=== PATIENT | male | born 1980 | race Caucasian/White ===

== ENCOUNTER 2016-11-23 08:17 | Observation (INO) ==
[2016-11-23] MEDS ORDERED: Aspirin Enteric Coated 81 MG Tablet PO ONE (09:31)
--- NOTE | 2016-11-23 09:34 | Emergency Department Note ---
Disposition Clinical Impression: Dizzy, Neck and shoulder pain Disposition: Admitted As Inpatient Condition: Good Referrals: Ami Funes CNP [Primary Care Provider] - Forms: ED Satisfaction Letter Dizziness HPI - General Chief Complaint: ED Dizziness Stated Complaint: dizziness Time Seen by Provider: 11/23/16 08:29 Source: patient Mode of arrival: private vehicle Limitations: no limitations Nursing Notes Reviewed: Yes Vital Signs Reviewed: Yes - History of Present Illness Pt Subjective Complaint: dizziness, other (left sided neck and shoulder pain) Onset (ago): hour(s) Timing: gradual onset, intermittent, waxing/waning, now resolved Description: lightheadedness, near-syncope History of similar episodes: Yes (heart cath 4 yrs ago - 30% blockage of LAD) History of trauma: No Severity: moderate, now resolved Improves with: nothing Worsens with: exertion (walking, working) Associated symptoms: Reports: nausea. Denies: ataxia, chest pain, confusion, diaphoresis, fever, chills, malaise, rash, shortness of breath, syncope, weakness, vision changes, vomiting, palpitations - Related Data Home Medications Medication Instructions Recorded Confirmed Aspirin [Lo-Dose Aspirin EC] 81 mg PO DAILY 11/23/16 11/23/16 Ibuprofen [Motrin] 200 - 800 mg PO Q6HR PRN 11/23/16 11/23/16 Testosterone Cypionate 200 mg IM QWEEK 11/23/16 11/23/16 [Depo-Testosterone] Allergies Allergy/AdvReac Type Severity Reaction Status Date / Time bee venom protein (honey bee) Allergy Anaphylaxis Verified 11/23/16 08:27 All systems ED: reviewed and negative except as stated. Constitutional: Denies: fever, chills, weakness, night sweats Eyes: Denies: vision change ENT ED: Denies: ear pain, throat pain, congestion, dysphagia Cardiovascular: Denies: chest pain, palpitations, dyspnea on exertion, orthopnea , edema, syncope Respiratory: Denies: cough, dyspnea, wheezes Gastrointestinal: Reports: nausea. Denies: abdominal pain, vomiting, diarrhea Musculoskeletal: Reports: as per HPI, neck pain, arthralgia. Denies: back pain , joint swelling Neurological: Denies: headache, weakness, numbness, paresthesias, confusion, abnormal gait, vertigo Psychiatric: Reports: anxiety ("had a little panic attack when walked into gas station and dizziness got worse") Hematological/Lymphatic: Denies: easy bleeding, easy bruising Past Medical History - Past Medical History Attestation: Yes The following information was validated with the patient. Source: patient Medical history: Reports: coronary artery disease (30% blockage in LAD on Cath 4 years ago.), hypertension, other Psychiatric history: Reports: no psych history - Social History Smoking Status: Never smoker Smokeless Tobacco Status: No Alcohol use: Reports: occasionally Drug use: Reports: none Physical Exam - General Limitations: no limitations General appearance: alert, in no apparent distress - Head Head exam: atraumatic, normocephalic, normal inspection - Eye Eye exam: Present: normal appearance, PERRL, EOMI - ENT ENT exam: normal exam, normal oropharynx, mucous membranes moist - Neck Neck exam: Present: normal inspection, full ROM, trachea midline. Absent: tenderness, meningismus, lymphadenopathy, thyromegaly - Expanded Neck Exam Neck exam focused ED: Absent: midline tenderness, paraspinal tenderness, tenderness (other), anterior neck swelling, JVD, carotid bruit - Chest Chest inspection: Present: normal inspection, symmetric chest wall rise - Respiratory Respiratory exam: Present: normal lung sounds bilaterally. Absent: respiratory distress, wheezes - Cardiovascular Cardiovascular exam: Present: regular rate, normal rhythm, normal heart sounds - Abdominal Exam Abdominal exam: Present: soft, Non-Tender. Absent: distention, mass - Extremities Exam Extremities exam: Present: normal inspection. Absent: pedal edema - Back Exam Back exam: Present: normal inspection, full ROM - Neurological Exam Neurological exam: Present: alert, oriented X3, CN II-XII intact, normal gait. Absent: motor sensory deficit - Psychiatric Psychiatric exam: Present: normal affect, normal mood - Skin Skin exam: Present: warm, dry, intact, normal color Course Course Narrative: Patient with history of coronary artery disease as documented from a left heart catheterization four years ago that showed 30% occlusion of the LAD presents with left-sided neck and shoulder pain as well as episodes of dizziness. He states that he got up for work and was feeling fine. Then while driving he began to feel dizzy, lightheaded and nauseated. He stopped at a gas station to buy some snacks and after walking and he felt worse. He states, "it felt like I was having a panic attack or was about to pass out." He describes increased stiffness in his neck and shoulder, generalized weakness, nausea and dizziness. He drove to work after resting a moment. While working he felt shakey and continued to have pain. His symptoms progressed despite sitting / resting, so he called his to bring him here. He has a family hx of ACS at a young age. His paternal grandfather of a heart attack at age 36, and his father had his first DC in his 30's. He states that his Fitness Sales Associate, Dr. Lange told him that his heart condition (CAD) is hereditary. Patient is obese, non-smoker, no alcohol, no diabetes. Will check labs, ecg and CXR. He will most likely need to be admitted for a rule out +/- repeat cath. Vital Signs Temperature 98 F 11/23/16 08:22 Pulse Rate 64 11/23/16 08:22 Respiratory Rate 16 11/23/16 08:22 Blood Pressure 131/84 11/23/16 08:22 O2 Sat by Pulse Oximetry 97 11/23/16 08:22 Temperature 98 F 11/23/16 08:22 Pulse Rate 63 11/23/16 10:30 Respiratory Rate 23 11/23/16 10:30 Blood Pressure 126/83 11/23/16 10:30 O2 Sat by Pulse Oximetry 96 11/23/16 10:30 Oxygen Delivery Oxygen Delivery Nasal Cannula Dizziness - Medical Records Medical records reviewed: Yes I reviewed the patient's medical records. - Lab Data Lab results reviewed: Yes I reviewed the patient's lab results. Result diagrams: 11/23/16 09:42 11/23/16 09:42 Lab Results 11/23/16 11/23/16 11/23/16 Range/Units 09:42 09:42 09:42 WBC 9.3 (4.3-11.1) K/mcL RBC 5.85 H (4.19-5.50) M/mcL Hgb 17.6 H (12.9-16.9) g/dL Hct 51.8 H (37.5-50.1) % MCV 88.5 (83.0-100.0) fL MCH 30.1 (28.0-33.3) pg MCHC 34.0 (31.6-35.5) g/dL RDW 13.2 (11.5-14.5) % Plt Count 244 (140-400) K/mcL MPV 10.8 (9.4-12.4) fL Immature Gran % 0.3 (0-4) % Seg Neutrophils % 60.9 % Lymphocytes % 20.6 % Monocytes % 5.2 % Eosinophils % 12.5 % Basophils % 0.5 % Neutrophils # 5.7 (1.6-8.9) K/mcL Lymphocytes # 1.9 (0.6-4.6) K/mcL Monocytes # 0.5 (0.0-1.3) K/mcL Eosinophils # 1.2 H (0.0-0.6) K/mcL Basophils # 0.1 (0.0-0.2) K/mcL Immature Plt Fraction 4.4 (1.1-6.1) % PT 12.4 H (9.4-12.1) Seconds INR 1.1 APTT 29.7 (26.0-36.0) Seconds Sodium 138 (136-145) mEq/L Potassium 4.2 (3.5-4.5) mEq/L Chloride 104 (98-109) mEq/L Carbon Dioxide 30 H (19-29) mEq/L BUN 10 (8-26) mg/dL Creatinine 1.05 (0.72-1.25) mg/dL Est GFR ( Amer) > 60 (> 60) Est GFR (Non-Af Amer) > 60 (> 60) BUN/Creatinine Ratio 10 (6-26) Glucose 88 (70-99) mg/dL Calculated Osmolality 284 (280-300) Calcium 8.9 (8.6-10.8) mg/dL Troponin I (0-0.03) ng/mL 11/23/16 Range/Units 09:42 WBC (4.3-11.1) K/mcL RBC (4.19-5.50) M/mcL Hgb (12.9-16.9) g/dL Hct (37.5-50.1) % MCV (83.0-100.0) fL MCH (28.0-33.3) pg MCHC (31.6-35.5) g/dL RDW (11.5-14.5) % Plt Count (140-400) K/mcL MPV (9.4-12.4) fL Immature Gran % (0-4) % Seg Neutrophils % % Lymphocytes % % Monocytes % % Eosinophils % % Basophils % % Neutrophils # (1.6-8.9) K/mcL Lymphocytes # (0.6-4.6) K/mcL Monocytes # (0.0-1.3) K/mcL Eosinophils # (0.0-0.6) K/mcL Basophils # (0.0-0.2) K/mcL Immature Plt Fraction (1.1-6.1) % PT (9.4-12.1) Seconds INR APTT (26.0-36.0) Seconds Sodium (136-145) mEq/L Potassium (3.5-4.5) mEq/L Chloride (98-109) mEq/L Carbon Dioxide (19-29) mEq/L BUN (8-26) mg/dL Creatinine (0.72-1.25) mg/dL Est GFR ( Amer) (> 60) Est GFR (Non-Af Amer) (> 60) BUN/Creatinine Ratio (6-26) Glucose (70-99) mg/dL Calculated Osmolality (280-300) Calcium (8.6-10.8) mg/dL Troponin I 0.00 (0-0.03) ng/mL - Radiology Data Radiology results reviewed: Yes I reviewed the patient's radiology results.
[2016-11-23] MEDS: 0.9 % Sodium Chloride 1,000 ML IVC SCH ×2 (09:44→22:36)
--- NOTE | 2016-11-23 09:51 | Emergency Department Note ---
START Narrative - START START: I examined this patient and my medical decision-making was reviewed with the COMMUNITY DEVELOPMENT PLANNER/PA/Advanced Practice Nurse/Resident Physician. I agree with the documented findings, disposition and treatment plan as described except to the extent set forth below.
[2016-11-23 10:05] LABS: Basophils # 0.1 K/mcL (0.0-0.2); Basophils % 0.5 %; Eosinophils # 1.2 K/mcL (0.0-0.6); Eosinophils % 12.5 %; Hematocrit 51.8 % (37.5-50.1); Hemoglobin 17.6 g/dL (12.9-16.9); Immature Granulocytes % 0.3 % (0-4); Immature Platelets 4.4 % (1.1-6.1); Lymphocytes # 1.9 K/mcL (0.6-4.6); Lymphocytes % 20.6 %; Mean Corpuscular Hemoglobin 30.1 pg (28.0-33.3); Mean Corpuscular Volume 88.5 fL (83.0-100.0); Mean Platelet Volume 10.8 fL (9.4-12.4); Monocytes # 0.5 K/mcL (0.0-1.3); Monocytes % 5.2 %; Neutrophils # 5.7 K/mcL (1.6-8.9); Platelet Count 244 K/mcL (140-400); Red Blood Count 5.85 M/mcL (4.19-5.50); Red Cell Distribution Width 13.2 % (11.5-14.5); Segmented Neutrophils % 60.9 %
[2016-11-23 10:09] LABS: INR 1.1; Prothrombin Time 12.4 Seconds (9.4-12.1)
[2016-11-23 10:12] LABS: Activated Partial Thrombo Time 29.7 Seconds (26.0-36.0)
[2016-11-23 10:17] LABS: BUN/Creatinine Ratio 10 (6-26); Blood Urea Nitrogen 10 mg/dL (8-26); Calcium 8.9 mg/dL (8.6-10.8); Carbon Dioxide 30 mEq/L (19-29); Chloride 104 mEq/L (98-109); Glucose 88 mg/dL (70-99); Osmolality,Calculated 284 (280-300); Potassium 4.2 mEq/L (3.5-4.5); Sodium 138 mEq/L (136-145); eGFR For African Americans > 60 (> 60); eGFR For Non-African Americans > 60 (> 60)
[2016-11-23] MEDS ORDERED: Naloxone 0.4 MG/ML INJ IVP PRN (12:19)
[2016-11-23] MEDS ORDERED: Ondansetron 4 MG/2 ML VIAL IVP PRN (12:19)
[2016-11-23] MEDS ORDERED: Acetaminophen 325 MG TABLET PO PRN (12:19)
--- NOTE | 2016-11-23 12:22 | Internal Med History&Physical ---
Date of Encounter: 11/23/16 Time of Encounter: 11:50 Assessment and Plan (1) Chest pain Current visit: Yes Status: Acute Atypical chest pain, to rule out ACS given strong family history and previous left heart catheter reports. Continue telemetry monitoring and cycle troponins. Continue aspirin and when necessary IV morphine, supportive care. Check 2-D echocardiogram. Qualifiers: Chest pain type: precordial pain Qualified Code(s): R07.2 - Precordial pain (2) Coronary artery disease Current visit: Yes Status: Chronic Qualifiers: Coronary Disease-Associated Artery/Lesion type: [place] artery [place] vs. transplanted heart: [place] heart Associated angina: without angina Qualified Code(s): I25.10 - Atherosclerotic heart disease of [place] coronary artery without angina pectoris Internal Medicine - H&P: HPI Chief complaint: Left neck, left chest pain Admitted From: Emergency Dept Plans for Post Hospital Care: Home History of present illness: Mr. Basurto is a 36 year old male with history of coronary artery disease and 30% LAD stenosis according to him, presents with complaints of sudden new onset of left-sided neck and shoulder pain, radiating to her left chest that started this morning. Patient reports feeling well until this morning when he was driving to work and developed a sudden onset of shooting pain in his left neck and shoulder, that radiated to his left chest, more like discomfort, associated with dizziness, some shortness of breath, nausea and not feeling well. No aggravating factors, partially relieved with aspirin. He drove himself to work but continued to have recurrent symptoms and he was brought to the emergency room by his . He reports having similar symptoms about 3-4 years ago when he underwent left heart catheterization due to strong family history of CAD and he was noted to have about 30% occlusion of LAD, no intervention was indicated. Past Med Surg Social Fam HX - Past Medical History Medical history: coronary artery disease (30% blockage in LAD on Cath 4 years ago.), other Psychiatric history: no psych history - Past Surgical History Surgical History: orthopedic, other (Left knee patellar surgery), vasectomy - Social History Smoking Status: Never smoker Smokeless Tobacco Status: No Alcohol use: occasionally Drug use: none Occupational status: employed Current living situation: Home, With Family Activity Level: Independent ambulation Recent Out of Country Travel Within the Last 8 Weeks: No - Family History Father Grandfather Living Status: Age at : 36 Hx Family Cardiac Disorders: Yes ([place] caused ) Internal Medicine - H&P: Meds Aspirin [Lo-Dose Aspirin EC] 81 mg PO DAILY 11/23/16 [History] Ibuprofen [Motrin] 200 - 800 mg PO Q6HR PRN 11/23/16 [History] Testosterone Cypionate [Depo-Testosterone] 200 mg IM QWEEK 11/23/16 [History] Allergies bee venom protein (honey bee) Allergy (Verified 11/23/16 08:27) Anaphylaxis All Systems PM: A 10-system review of systems was performed and is negative for pertinent findings except as documented above in the HPI. - Constitutional Constitutional: no chills, no fever(s), no night sweats - EENT Eyes: no change in vision, no discharge, no pain, no photophobia Ears: no ear discharge, no ear pain, no tinnitus Nose, mouth and throat: no dysphagia, no nasal discharge, no neck pain, no sore throat - Cardiovascular Cardiovascular ROS IM: chest pain, dyspnea, lightheadedness - Respiratory Respiratory: no cough, no dyspnea, no wheezing, no excessive phlegm production - Gastrointestinal Gastrointestinal: nausea - Musculoskeletal Musculoskeletal ROS IM: no numbness, no tingling - Integumentary Integumentary IM: no rash, no unusual bruising - Neurological Neurological ROS: no confusion, no convulsions, no focal weakness, no numbness, no tingling, no tremor(s) - Hematologic/Lymphatic Hematologic/Lymphatic: no easy bruising - Constitutional Vitals: Temp Pulse Resp BP Pulse Ox 98 F 52 13 122/78 99 11/23/16 08:22 11/23/16 11:08 11/23/16 11:08 11/23/16 11:08 11/23/16 11:08 General appearance: Present: A&O X 3, morbidly obese, answers questions appropriately - Respiratory Respiratory exam: Present: CTAB. Absent: accessory muscle use, rales, rhonchi, wheezes - Cardiovascular Cardiovascular exam: Present: RRR, +S1, +S2. Absent: diastolic murmur, gallop, rubs, systolic murmur - GI/Abdominal GI/Abdominal exam: Present: normal bowel sounds, soft, no peritoneal signs. Absent: distended, tenderness - Extremities Exam Extremities exam: Present: full ROM, warm, radial pulses palpable and symetrical. Absent: calf tenderness, cyanotic, pedal edema - Neurological Exam Neurological exam: Present: CN II-XII intact, oriented X3, no focal deficits. Absent: pronater drift, facial droop, speech deficit - Skin Skin exam: Present: dry, intact Internal Med - H&P Results - Labs CBC & Chem 7: 11/23/16 09:42 11/23/16 09:42 Labs: Short CBC 11/23/16 Range/Units 09:42 WBC 9.3 (4.3-11.1) K/mcL Hgb 17.6 H (12.9-16.9) g/dL Hct 51.8 H (37.5-50.1) % Plt Count 244 (140-400) K/mcL Neutrophils # 5.7 (1.6-8.9) K/mcL BMP 11/23/16 09:42 Sodium 138 Potassium 4.2 Chloride 104 Carbon Dioxide 30 H BUN 10 Creatinine 1.05 Glucose 88 Calcium 8.9 Cardiac Enzymes 11/23/16 Range/Units 09:42 Troponin I 0.00 (0-0.03) ng/mL - EKG Data -: EKG Interpreted by Myself EKG shows normal: sinus rhythm Rate: normal - Impressions ITS Impressions Chest X-Ray 11/23/16 09:29 IMPRESSION: No acute process. D/ / Renard Calderon MD / Renard Calderon MD Interpreting Provider: Renard Calderon MD
[2016-11-24 00:47] LABS: Basophils # 0.1 K/mcL (0.0-0.2); Basophils % 0.5 %; Eosinophils # 1.2 K/mcL (0.0-0.6); Eosinophils % 11.8 %; Hematocrit 50.7 % (37.5-50.1); Hemoglobin 16.9 g/dL (12.9-16.9); Immature Granulocytes % 0.4 % (0-4); Lymphocytes # 2.7 K/mcL (0.6-4.6); Lymphocytes % 26.8 %; Mean Corpuscular HGB Conc 33.3 g/dL (31.6-35.5); Mean Corpuscular Hemoglobin 29.8 pg (28.0-33.3); Mean Corpuscular Volume 89.4 fL (83.0-100.0); Mean Platelet Volume 10.7 fL (9.4-12.4); Monocytes # 0.6 K/mcL (0.0-1.3); Monocytes % 5.5 %; Neutrophils # 5.5 K/mcL (1.6-8.9); Platelet Count 248 K/mcL (140-400); Red Blood Count 5.67 M/mcL (4.19-5.50); Red Cell Distribution Width 13.1 % (11.5-14.5)
[2016-11-24 01:03] LABS: BUN/Creatinine Ratio 11 (6-26); Blood Urea Nitrogen 13 mg/dL (8-26); Calcium 8.7 mg/dL (8.6-10.8); Carbon Dioxide 26 mEq/L (19-29); Chloride 108 mEq/L (98-109); Chol/HDL Ratio 5.5 (0-4.9); Cholesterol 142 mg/dL (< 200); Glucose 102 mg/dL (70-99); HDL Cholesterol 26 mg/dL (40-59); LDL Cholesterol,Calculated 93 mg/dL (0-99); Osmolality,Calculated 290 (280-300); Sodium 140 mEq/L (136-145); Triglycerides 113 mg/dL (< 150); eGFR For African Americans > 60 (> 60); eGFR For Non-African Americans > 60 (> 60)
[2016-11-24 01:04] LABS: Potassium 4.4 mEq/L (3.5-4.5)
--- NOTE | 2016-11-24 06:33 | Electrocardiograph Report ---
[facility] Test Date: 2016-11-23 Pat Name: Vadim Basurto Department: 102 Room: 3B55 Gender: M Rack Puncher: Zheng : 1980 Requested By: January Lang Order Number: [id number] Reading MD: Mars Miner MD Measurements Intervals [place] Rate: 67 P: 26 WV: 162 QRS: 45 QRSD: 100 T: 15 QT: 384 QTc: 399 Interpretive Statements SINUS RHYTHM Electronically Signed On 11-24-2016 6:31:47 EDT by Mars Miner MD
[2016-11-24] MEDS ORDERED: Regadenoson 0.4 MG/5 ML SYRINGE IVP ONE (07:03)
[2016-11-24] MEDS: Aspirin Enteric Coated 81 MG Tablet PO SCH (07:08)
[2016-11-24] MEDS: 0.9 % Sodium Chloride 1,000 ML IVC SCH (17:23)
--- NOTE | 2016-11-24 17:28 | Internal Med Progress Note ---
Date of Encounter: 11/24/16 Time of Encounter: 15:00 - Assessment and plan (1) Chest pain Current Visit: Yes Status: Acute Assessment and plan: 36-year-old male with past medical history of CAD, patient had left heart catheterization showing 30% blockage in the LAD in 2012. He presented with a chief complaint of left-sided chest pain radiating to his neck and left arm. Troponins were negative. EKG showed no acute ischemic changes. Chest x-ray showed no acute process. Patient is chest pain-free. He is at risk for ACS given comorbidities including COPD and morbid obesity. No telemetry events. He underwent first part of his stress test this morning. He will have second part of his stress test tomorrow. Qualifiers: Chest pain type: precordial pain Qualified Code(s): R07.2 - Precordial pain (2) Coronary artery disease Current Visit: Yes Status: Chronic Assessment and plan: continue aspirin. Qualifiers: Coronary Disease-Associated Artery/Lesion type: [place] artery [place] vs. transplanted heart: [place] heart Associated angina: without angina Qualified Code(s): I25.10 - Atherosclerotic heart disease of [place] coronary artery without angina pectoris (3) Morbid obesity with BMI of 40.0-44.9, adult Current Visit: No Status: Chronic Assessment and plan: BMI 42. Outpatient weight loss program. - Subjective Interval history: no chest pain. no shortness of breath. - Constitutional Vitals: Temp Pulse Resp BP Pulse Ox 97.7 F 65 16 102/66 98 11/24/16 15:40 11/24/16 15:40 11/24/16 15:40 11/24/16 15:40 11/24/16 15:40 General appearance: Present: cooperative, A&O X 3, morbidly obese, no acute distress, answers questions appropriately - Neck Neck exam general surgery: Present: supple, trachea midline. Absent: lymphadenopathy - Respiratory Respiratory exam: Present: CTAB - Cardiovascular Cardiovascular exam: Present: RRR - GI/Abdominal GI/Abdominal exam: Present: normal bowel sounds, soft. Absent: distended, tenderness - Extremities Exam Extremities exam: Absent: pedal edema - Back Exam Back exam: Absent: CVA tenderness (L), CVA tenderness (R) - Neurological Exam Neurological exam: Present: alert, oriented X3, no focal deficits, strengths equal and symetr throughout. Absent: facial droop, speech deficit - Skin Skin exam: Absent: rash Internal Medicine: Result - Labs CBC & Chem 7: 11/24/16 00:31 11/24/16 00:31 Labs: Short CBC 11/24/16 Range/Units 00:31 WBC 10.0 (4.3-11.1) K/mcL Hgb 16.9 (12.9-16.9) g/dL Hct 50.7 H (37.5-50.1) % Plt Count 248 (140-400) K/mcL Neutrophils # 5.5 (1.6-8.9) K/mcL BMP 11/24/16 00:31 Sodium 140 Potassium 4.4 Chloride 108 Carbon Dioxide 26 BUN 13 Creatinine 1.14 Glucose 102 H Calcium 8.7 Cardiac Enzymes 11/23/16 11/24/16 Range/Units 18:55 00:31 Troponin I 0.00 0.00 (0-0.03) ng/mL - ABG Interpretation ABG results: PT/INR, D-dimer PT 12.4 Seconds (9.4-12.1) H 11/23/16 09:42 Consult Discharge Plan - Plan Referrals: Ami Funes SALES SPECIALIST [Primary Care Provider] - 12/04/16 1:00 pm
[2016-11-25 06:31] LABS: Basophils # 0.1 K/mcL (0.0-0.2); Basophils % 0.5 %; Eosinophils % 9.7 %; Hematocrit 50.7 % (37.5-50.1); Hemoglobin 16.7 g/dL (12.9-16.9); Immature Granulocytes % 0.3 % (0-4); Lymphocytes # 2.3 K/mcL (0.6-4.6); Lymphocytes % 22.8 %; Mean Corpuscular HGB Conc 32.9 g/dL (31.6-35.5); Mean Corpuscular Hemoglobin 29.3 pg (28.0-33.3); Mean Corpuscular Volume 89.1 fL (83.0-100.0); Mean Platelet Volume 11.2 fL (9.4-12.4); Monocytes # 0.6 K/mcL (0.0-1.3); Monocytes % 5.7 %; Platelet Count 250 K/mcL (140-400); Red Blood Count 5.69 M/mcL (4.19-5.50); Red Cell Distribution Width 13.1 % (11.5-14.5)
[2016-11-25 06:48] LABS: Alanine Aminotransferase 26 Units/L (0-55); Albumin 3.4 g/dL (3.5-5.0); Alkaline Phosphatase 47 Units/L (38-126); Aspartate Amino Transferase 19 Units/L (5-34); BUN/Creatinine Ratio 9 (6-26); Blood Urea Nitrogen 10 mg/dL (8-26); Calcium 8.7 mg/dL (8.6-10.8); Carbon Dioxide 29 mEq/L (19-29); Chloride 107 mEq/L (98-109); Globulin 3.3 g/dL (2.4-3.5); Glucose 85 mg/dL (70-99); Magnesium 1.7 mg/dL (1.6-2.6); Osmolality,Calculated 288 (280-300); Potassium 4.3 mEq/L (3.5-4.5); Sodium 140 mEq/L (136-145); Total Protein 6.7 g/dL (6.0-8.3); eGFR For African Americans > 60 (> 60); eGFR For Non-African Americans > 60 (> 60)
[2016-11-25] MEDS: Aspirin Enteric Coated 81 MG Tablet PO SCH (09:04)
--- NOTE | 2016-11-25 10:30 | Nuclear Medicine Stress Report ---
Regadenoson Nuclear 2 day Name: Vadim Basurto Date of Study: 11/24/2016 Date: 1980 Ht: 72.0 in Medical Record#: [id number] Age: 36 Wt: 308.0 lb Gender: Male Order #: [id number] Location: [facility] Room: [facility] Supervising Provider: Beth Quintana CNP Reading Physician: William Sood MD, [facility] Ordering Physician: Zina Acevedo CNP Primary Care Physician: tarik penaloza, Stress Technologist: Moreno Iverson, VP SALES, CCT User Interface Designer: Hammad Melendez Indications: Chest Pain, Dizzy Impression: Perfusion imaging was negative for ischemia or infarct. SDS - 0 Mild fixed perfusion defect in the inferoapical wall most consistent with artifact Patient had no chest pain with stress. Pharmacologic ECG was non diagnostic for ischemia. No arrhythmias noted with stress. Gated EF = 51%. The LV is not dilated. There is no evidence of TID. Stress Test Summary: Stress Test Type: Pharmacologic Regadenoson 0.4mg/5ml given IV Baseline Information: Initial Heart Rate: 71 Blood Pressure: 146/90 Stress Information: Stress Time: 4 min 00 sec Test Terminated Due to (primary): Completed Protocol Maximum Blood Pressure: 162/94 Maximum Heart Rate: 116 Percent Maximum Heart Rate Achieved: 63 Double Product: 18,792 METS Reached: 1 Symptoms: Shortness of breath, Warm,flushed Nuclear Summary: SPECT myocardial perfusion imaging using Tc99m Sestamibi given intravenously was performed at rest and following cardiac stress testing. The resting images were obtained following initial dose of 34.0 mCi. Following stress an additional dose of 31.4 mCi was given at peak exercise or 30 seconds post regadenoson infusion. Medication Given: Time Medication Dose Units Route Findings: Stress Note * Resting ECG demonstrated normal sinus rhythm. * No baseline arrhythmias were noted. * Pharmacologic stress ECG is non diagnostic for ischemia due to failure to reach target heartrate. * No chest pain or arrhythmias during stress. Hemodynamic responses * The patient demonstrated a hypotensive blood pressure response. Study Quality * Study quality is average. Gated EF % * Gated EF = 51%. Left Ventricle * The left ventricle is not dilated. NORMALS * Normal wall motion. * All other segmental perfusion normal in stress. * All other segmental perfusion normal in rest. TID * No evidence of transient ischemic dilatation. Apical Perfusion Rest * The apex segment shows a mild reduction in perfusion. Apical Perfusion Stress * The apex segment shows a mild reduction in perfusion. Inferior Perfusion Rest * The apical inferior segment shows a mild reduction in perfusion. Inferior Perfusion Stress * The apical inferior segment shows a mild reduction in perfusion. Updated by William Sood MD, FACC on 11/25/2016 10:20:16 AM electronically signed on 11/25/2016 10:25:24 AM with status of Final
[2016-11-25 10:44] VITALS: BP 109/61
--- NOTE | 2016-11-25 11:13 | Discharge Summary ---
Date of Encounter: 11/25/16 Time of Encounter: 11:10 - Discharge Diagnosis (1) Chest pain Priority: Primary Status: Acute Comments: 36-year-old male with past medical history of CAD, patient had left heart catheterization showing 30% blockage in the LAD in 2012. He presented with a chief complaint of left-sided chest pain radiating to his neck and left arm. Troponins were negative. EKG showed no acute ischemic changes. Chest x-ray showed no acute process. Stress test was negative for any acute process. Patient remained chest pain-free during this hospitalization. No telemetry events. Patient was ambulating and eating well at discharge. PLAN: Patient instructed to lose weight. Follow-up with primary care physician next week. Qualifiers: Chest pain type: precordial pain Qualified Code(s): R07.2 - Precordial pain (2) Coronary artery disease Priority: Secondary Status: Chronic Qualifiers: Coronary Disease-Associated Artery/Lesion type: [place] artery [place] vs. transplanted heart: [place] heart Associated angina: without angina Qualified Code(s): I25.10 - Atherosclerotic heart disease of [place] coronary artery without angina pectoris (3) Morbid obesity with BMI of 40.0-44.9, adult Priority: Secondary Status: Chronic - Discharge Medications Home Medications: Aspirin [Lo-Dose Aspirin EC] 81 mg PO DAILY 11/23/16 [History] Testosterone Cypionate [Depo-Testosterone] 200 mg IM QWEEK 11/23/16 [History] Allergies/Adverse Reactions: Allergies bee venom protein (honey bee) Allergy (Verified 11/23/16 08:27) Anaphylaxis Date of admission: 11/23/16 12:28 Primary care physician: KATHIE Jean-Baptiste - Patient Status Disposition: Home, Self-Care Condition: Good Functional capacity at discharge: independent ambulation Overall status at discharge: patient is back to baseline - Discharge Instructions Instructions: Chest Pain (DC) Follow Up With: Ami Funes CNP [Primary Care Provider] - 12/04/16 1:00 pm - Diet and Activity Activity: resume usual activities as tolerated Diet: low fat, low cholesterol Interval History: Patient has no complaints. No chest pain. No shortness of breath. He is ambulating and eating well. He is eager to go home. Hospital course: Mr. Basurto is a 36 year old male - Time Spent with Patient Total time spent providing and/or coordinating discharge services: - Constitutional Vitals: Temp Pulse Resp BP Pulse Ox 98.0 F 67 14 109/61 97 11/25/16 10:43 11/25/16 10:43 11/25/16 10:43 11/25/16 10:43 11/25/16 10:43 General appearance: Present: cooperative, A&O X 3, morbidly obese, no acute distress, answers questions appropriately - Eye Eye exam: Present: PERRL, sclera anicteric - Neck Neck exam general surgery: Present: supple, trachea midline. Absent: lymphadenopathy - Respiratory Respiratory exam: Present: CTAB - Cardiovascular Cardiovascular exam: Present: RRR - GI/Abdominal GI/Abdominal exam: Present: normal bowel sounds, soft. Absent: distended, tenderness - Extremities Exam Extremities exam: Absent: pedal edema - Back Exam Back exam: Absent: CVA tenderness (L), CVA tenderness (R) - Neurological Exam Neurological exam: Present: alert, oriented X3, no focal deficits, strengths equal and symetr throughout. Absent: facial droop, speech deficit - Skin Skin exam: Absent: rash
== END 2016-11-25 11:49 | disposition home or self-care (01) ==
LOC: 3BNU 08:17 → EMEROO 08:17 → SUATTDRO 12:28 → 3BNU 13:27
PROVIDERS: ADMIT Internal Medicine; ATTEND Internal Medicine